=== PATIENT | female | born 1970 | race Caucasian/White ===

== ENCOUNTER 2016-04-10 13:58 | Emergency (ER) | payer SELFPAY ==
[2016-04-10 13:58] VITALS: BMI 21.8
[2016-04-10 14:13] VITALS: TEMP 98.2
[2016-04-10 14:30] LABS: AUTOMATED BASOPHIL 0.8 % (0-2); AUTOMATED EOSINOPHIL 10.8 % (0-5); AUTOMATED LYMPH 34.6 % (17-44); AUTOMATED MONOCYTE 6.8 % (3-10); MPV 7.6 fL (7.4-10.4)
[2016-04-10 14:42] LABS: LEUKOCYTES/URINE NEG (NEGATIVE); NITRITE/URINE NEG (NEGATIVE); URINE OCCULT BLOOD NEG (NEG/TRACE)
[2016-04-10 14:43] LABS: RBC/URINE 0-2 (0-5)
[2016-04-10 14:43] LABS: BLOOD UREA NITROGEN 10 MG/DL (7-17); CALCIUM 9.4 MG/DL (8.4-10.2); CALCULATED OSMOLALITY 269 MOs/Kg (270-290); CHLORIDE 103 mEq/L (98-107); GLUCOSE 78 MG/DL (70-99); SODIUM LEVEL 141 mEq/L (137-146); TOTAL PROTEIN 7.8 G/DL (6.3-8.2)
[2016-04-10] MEDS ORDERED: NS 1,000 ML IV ONE ×3 (15:11→17:30)
[2016-04-10] MEDS ORDERED: ONDANSETRON HCL 4 MG/2 ML VIAL IV ONE (15:11)
[2016-04-10] MEDS ORDERED: HYDROmorphone 1 MG INJECTION IV ONE ×2 (15:11→17:29)
--- NOTE | 2016-04-10 15:19 | EDPRACDOC ---
- General Information Chief Complaint: Abdominal Pain Stated Complaint: RT FLANK PAIN Time Seen by Provider: 04/10/16 14:44 Information Source: Patient Mode Of Arrival: Car Home Medications: Home Medications Ondansetron [Zofran Odt] 4 mg PO Q6H #20 tab.rapdis 04/10/16 Oxycodone Immediate Release [Oxycodone Immediate Release (OxyIR)] 5 mg PO Q4H PRN #15 tab 04/10/16 Allergies/Adverse Reactions: Allergies Allergy/AdvReac Type Severity Reaction Status Date / Time No Known Allergies Allergy Verified 04/10/16 14:13 - History of Present Illness Onset: SEVERAL MONTHS HPI: PT C/O RIGHT UPPER QUADRANT PAIN RIGHT FLANK PAIN OVER THE LAST FEW MONTHS THAT HAS GOTTEN SIGNIFICANTLY WORSE OVER THE LAST SEVERAL DAYS AND NOW HAVING N/V. NO DIARRHEA ALLEVIATING OR AGGRAVATING FACTORS AT THIS TIME. Pain Location: Reports: Epigastric, RUQ, Flank (RT) Pain Context: Reports: Spontaneous Pain Severity: Moderate Pain Quality: Reports: Aching, Sharp Pain Radiation: Reports: Shoulder (RT), Back (RT) Last Menstrual Period: 04/04/16 : No Blood Type: Unknown Modifying Factors: improves with: Nothing Female Associated Signs & Symptoms: Reports: Nausea, Vomiting Oral Intake: Decreased Urinary Output: Normal - Treatment Prior to ED Arrival Reported Medications/Treatment [employer] Treated With Medication [employer] YES Medications [employer]ENT[employer] (Medication/ HYRDOCODONE [id number] Dose/Time) ED Past Medical History - History Reviewed Yes Nurses notes reviewed and agree except as marked Travel Outside of [place] in the Last 3 Months?: No - Patient Medical History Neurological History: Reports: Migraine Psychological History: Denies: Depression Systemic History: Denies: Cancer Surgical History: Denies: Hysterectomy - Family Medical History Reports: Stroke (MOTHER IN 40'S) - Social Medical History Smoking Status: Heavy tobacco smoker (5 or more cigarettes/day or daily pipe/ cigar) ETOH: None Substance Abuse: None Lives With: Other Lives In: Home EDM Review of Systems - Review of Systems ROS Negative Except as Marked: Yes All systems reviewed and were negative except as marked Constitutional: No Symptoms Reported. negative: Fever, Chills, Weakness, Fatigue, Loss of Appetite Eyes: No Symptoms Reported. negative: Redness, Blurred Vision, Double Vision, Discharge, Pain, Light Sensitive, Photophobia Ears: No Symptoms Reported. negative: Pain, Hearing Loss, Drainage, Ear Pulling Throat: No Symptoms Reported. negative: Pain, Swelling Nose: No Symptoms Reported. negative: Congestion, Bleeding, Discharge, Injection, Swelling, Deformity, Ecchymosis, Tender, Abrasion, Laceration Mouth: No Symptoms Reported. negative: Pain, Drooling Respiratory: No Symptoms Reported. negative: Cough, Brassy Cough, Barky Cough, Shortness of Breath, Wheezing, Hemoptysis Cardiovascular: No Symptoms Reported. negative: Chest Pain, Palpitations, Syncope, Edema, Orthopnea, PND, Skin Mottling, Cyanosis Gastrointestinal: Nausea, Pain, Vomiting. negative: Constipation, Diarrhea, Formula Intolerance, Melena Genitourinary: No Symptoms Reported. negative: Dysuria, Hematuria, Frequency, Discharge, Bleeding, Testicular Pain, Neurological: No Symptoms Reported. negative: Headache, Dizziness, Seizure, Numbness, Weakness, Speech Difficulty, Gait Difficulty Musculoskeletal: No Symptoms Reported. negative: Neck, Chestwall, Ribs, Back, Shoulder, Arm, Elbow, Forearm, Wrist, Hand, Pelvis, Hip, Femur, Knee, Leg, Ankle , Foot Integumentary: No Symptoms Reported. negative: Itching, Rash, Bruising, Wound Allergic/Immunologic: No Symptoms Reported. negative: Hives, Itching Hematologic: No Symptoms Reported. negative: Lymphadenopathy, Easy Bruising, Easy Bleeding Endocrine: No Symptoms Reported. negative: Weight Gain, Weight Loss Psychiatric: No Symptoms Reported. negative: Anxiety, Depression, Hallucinations, Insomnia, Suicidal - Physical Exam Constitutional: Alert (Awake), No apparent distress Oriented to: Time, Person, Place Last recorded Vital Signs: Last Vital Signs Temp 98.2 F 04/10/16 14:10 Pulse 54 L 04/10/16 17:56 Resp 18 04/10/16 17:56 BP 113/73 04/10/16 17:56 Pulse Ox 96 04/10/16 17:56 Oxygen Pulse Oxygen Saturation 96 O2 Device Room Air Oxygen Flow Rate Fraction of Inspired Oxygen ( FIO2) - HEENT Head: Normal ( normocephalic) Eye Exam: Normal (PERRL, EOMI, Sclera white) Oropharynx: Normal (Pharynx:Moist without exudate,Gums-no swelling) Tympanic Membrane: Normal ENT EAC: Normal TMJ: Normal Nose: No Symptoms Reported (septum midline) Neck: Normal (FROM, trachea at midline) - Respiratory/Cardiovascular Respiratory: Normal - CTA (BBS clear to auscultation without adventitious sounds ) Cardiovascular: Normal (RRR without murmur, gallop or rub) - GI Auscultation: Normal (NABS) Palpation: Normal (Soft,No rebound or guarding, non distended) Tenderness: Mild, Moderate, RUQ, Epigastric Camacho's Sign: Negative - Bladder: Normal - Musculoskeletal Back: Normal (Non-Tender) Extremities: Normal (Normal tone, Pulses 2+ No cyanosis or edema, FROM) - Integumentary Skin: Normal, Warm, Dry Lymphatics: Normal (no adenopathy) - Neurologic Memory Impaired: Normal Motor Function: Normal (Normal tone, Pulses 2+ No cyanosis or edema, FROM) Cranial Nerve: Normal (CN II-X11 intact sensation, strength 5/5) Cerebellar: Normal Mood Description: Normal Perception: Normal - Differential Diagnosis Cholecystitis, Cholelithiasis, Colic, Constipation, Diverticulitis, Pancreatitis , PUD, Urolithiasis, UTI - Results 04/10/16 14:15 04/10/16 14:15 WBC 8.7 xk/uL (3.8-10.8) 04/10/16 14:15 RBC 4.13 xM/uL (4.20-5.40) L 04/10/16 14:15 Hgb 12.5 g/dL (12.0-16.0) 04/10/16 14:15 Hct 36.9 % (36-47) 04/10/16 14:15 MCV 89 fL (81-99) 04/10/16 14:15 MCH 30.2 pg (27-32) 04/10/16 14:15 MCHC 33.8 g/dl (33-36) 04/10/16 14:15 RDW 14.6 % (11.5-14.5) H 04/10/16 14:15 Plt Count 283 xk/uL (130-400) 04/10/16 14:15 MPV 7.6 fL (7.4-10.4) 04/10/16 14:15 Neut % (Auto) 47.0 % (45-76) 04/10/16 14:15 Lymph % (Auto) 34.6 % (17-44) 04/10/16 14:15 Moore % (Auto) 6.8 % (3-10) 04/10/16 14:15 Eos % (Auto) 10.8 % (0-5) H 04/10/16 14:15 Baso % (Auto) 0.8 % (0-2) 04/10/16 14:15 Absolute Neuts (auto) 4.09 xk/uL (1.7-8.2) 04/10/16 14:15 Absolute Lymphs (auto) 2.96 xk/uL (0.65-4.75) 04/10/16 14:15 Sodium 141 mEq/L (137-146) 04/10/16 14:15 Potassium 4.4 mEq/L (3.5-5.1) 04/10/16 14:15 Chloride 103 mEq/L (98-107) 04/10/16 14:15 Carbon Dioxide 27 mMOL/L (22-33) 04/10/16 14:15 Anion Gap 15 mEq/L (8-16) 04/10/16 14:15 BUN 10 MG/DL (7-17) 04/10/16 14:15 Creatinine 0.80 MG/DL (0.52-1.04) 04/10/16 14:15 Estimated GFR (MDRD) > 60 mL/min (>=60) 04/10/16 14:15 Glucose 78 MG/DL (70-99) 04/10/16 14:15 Calculated Osmolality 269 MOs/Kg (270-290) L 04/10/16 14:15 Calcium 9.4 MG/DL (8.4-10.2) 04/10/16 14:15 Total Bilirubin 0.4 MG/DL (0.2-1.3) 04/10/16 14:15 AST 26 IU/L (14-36) 04/10/16 14:15 ALT 36 IU/L (9-52) 04/10/16 14:15 Alkaline Phosphatase 57 IU/L (38-126) 04/10/16 14:15 Total Protein 7.8 G/DL (6.3-8.2) 04/10/16 14:15 Albumin 4.4 G/DL (3.5-5.0) 04/10/16 14:15 Lipase 165 U/L (23-300) 04/10/16 14:25 Urine Color Yellow 04/10/16 14:18 Urine Clarity Clear 04/10/16 14:18 Urine pH 6.0 (5.0-8.0) 04/10/16 14:18 Ur Specific [place] 1.010 04/10/16 14:18 Urine Protein Neg (NEG/TRACE) 04/10/16 14:18 Urine Glucose (UA) Neg (NEGATIVE) 04/10/16 14:18 Urine Ketones Neg (NEGATIVE) 04/10/16 14:18 Urine Occult Blood Neg (NEG/TRACE) 04/10/16 14:18 Urine Nitrite Neg (NEGATIVE) 04/10/16 14:18 Urine Bilirubin Neg (NEGATIVE) 04/10/16 14:18 Urine Urobilinogen 0.2 MG/DL (0-1) 04/10/16 14:18 Ur Leukocyte Esterase Neg (NEGATIVE) 04/10/16 14:18 Urine RBC 0-2 (0-5) 04/10/16 14:18 Urine WBC 2-5 (0-5) 04/10/16 14:18 Ur Epithelial Cells Occ 04/10/16 14:18 Urine Bacteria Few (NEG/FEW) 04/10/16 14:18 Urine Mucus Sm amt (NEG/OCC) 04/10/16 14:18 Urine Test Neg (NEGATIVE) 04/10/16 14:18 Lab Results 04/10/16 04/10/16 04/10/16 14:25 14:18 14:18 WBC RBC Hgb Hct MCV MCH MCHC RDW Plt Count MPV Neut % (Auto) Lymph % (Auto) Moore % (Auto) Eos % (Auto) Baso % (Auto) Absolute Neuts (auto) Absolute Lymphs (auto) Sodium Potassium Chloride Carbon Dioxide Anion Gap BUN Creatinine Estimated GFR (MDRD) Glucose Calculated Osmolality Calcium Total Bilirubin AST ALT Alkaline Phosphatase Total Protein Albumin Lipase 165 Urine Color Yellow Urine Clarity Clear Urine pH 6.0 Ur Specific [place] 1.010 Urine Protein Neg Urine Glucose (UA) Neg Urine Ketones Neg Urine Occult Blood Neg Urine Nitrite Neg Urine Bilirubin Neg Urine Urobilinogen 0.2 Ur Leukocyte Esterase Neg Urine RBC 0-2 Urine WBC 2-5 Ur Epithelial Cells Occ Urine Bacteria Few Urine Mucus Sm amt Urine Test Neg 04/10/16 04/10/16 14:15 14:15 WBC 8.7 RBC 4.13 L Hgb 12.5 Hct 36.9 MCV 89 MCH 30.2 MCHC 33.8 RDW 14.6 H Plt Count 283 MPV 7.6 Neut % (Auto) 47.0 Lymph % (Auto) 34.6 Moore % (Auto) 6.8 Eos % (Auto) 10.8 H Baso % (Auto) 0.8 Absolute Neuts (auto) 4.09 Absolute Lymphs (auto) 2.96 Sodium 141 Potassium 4.4 Chloride 103 Carbon Dioxide 27 Anion Gap 15 BUN 10 Creatinine 0.80 Estimated GFR (MDRD) > 60 Glucose 78 Calculated Osmolality 269 L Calcium 9.4 Total Bilirubin 0.4 AST 26 ALT 36 Alkaline Phosphatase 57 Total Protein 7.8 Albumin 4.4 Lipase Urine Color Urine Clarity Urine pH Ur Specific [place] Urine Protein Urine Glucose (UA) Urine Ketones Urine Occult Blood Urine Nitrite Urine Bilirubin Urine Urobilinogen Ur Leukocyte Esterase Urine RBC Urine WBC Ur Epithelial Cells Urine Bacteria Urine Mucus Urine Test - Diagnostic Imaging GBUS Image interpreted by: Radiologist 04/10/16 16:54 IMPRESSION: Normal right upper quadrant ultrasound. CT ABD/PEL Image interpreted by: Radiologist 04/10/16 18:08 IMPRESSION: 1. No acute findings within the abdomen or pelvis. 2. Aortic atherosclerosis noted. Decision Time to Discharge: 18:09 - Departure Disposition: Home Condition: Stable Final Diagnosis: Biliary colic Instructions: Acute Abdominal Pain (ED), Non-pharmacological Pain Management Therapies for Adults (GEN), Abdominal Pain (ED), Biliary Colic (ED) Education/Counseling Given To: Patient Education/Counseling Given Regarding: Diagnosis, Treatment, Prognosis, Follow Up Referrals: None,No Provider [Primary Care Provider] - One Week Yousuf Vences MD [Staff Physician] - One Week Prescriptions: New Ondansetron [Zofran Odt] 4 mg PO Q6H #20 tab.rapdis Oxycodone Immediate Release [Oxycodone Immediate Release (OxyIR)] 5 mg PO Q4H PRN #15 tab PRN Reason: Pain Additional Instructions: RECOMMEND HIDA SCAN TO EVALUATE THE FUNCTION OF YOUR GALLBLADDER. RETURN FOR WORSE OR DIFFERENT SYMPTOMS.
--- NOTE | 2016-04-10 16:47 | DIRPT ---
CLINICAL DATA: Right flank pain with radiation to back for the last 2 weeks. EXAM: US ABDOMEN LIMITED - RIGHT UPPER QUADRANT COMPARISON: CT of 10/23/2011, report not available. FINDINGS: Gallbladder: No gallstones or wall thickening visualized. No sonographic Caamcho sign noted by call or contact centre manager. Common bile duct: Diameter: Normal, 4 mm. Liver: No focal lesion identified. Within normal limits in parenchymal echogenicity. IMPRESSION: Normal right upper quadrant ultrasound. Electronically Signed By: Yossi Aviles M.D. On: 04/10/2016 16:45
[2016-04-10] MEDS ORDERED: Pharmacy Review for Metformin - IV Contrast Given SCH (17:00)
--- NOTE | 2016-04-10 17:51 | DIRPT ---
CLINICAL DATA: Right-sided abdominal pain, nausea and vomiting. EXAM: CT ABDOMEN AND PELVIS WITH CONTRAST TECHNIQUE: Multidetector CT imaging of the abdomen and pelvis was performed using the standard protocol following bolus administration of intravenous contrast. CONTRAST: 100 cc of Isovue 370 COMPARISON: 10/23/2011 FINDINGS: Lower chest: No pleural fluid. The lung bases are clear. Hepatobiliary: Low density structure within the anterior right hepatic lobe measures 4 mm. This is too small to characterize. The gallbladder is normal. No biliary dilatation. Pancreas: Normal appearance of the pancreas. Spleen: Negative Adrenals/Urinary Tract: The adrenal glands are normal. Unremarkable appearance of both kidneys. The urinary bladder appears within normal limits. Stomach/Bowel: The stomach is within normal limits. The small bowel loops have a normal course and caliber. No obstruction. Normal appearance of the colon. The appendix is visualized and is normal. Vascular/Lymphatic: Calcified atherosclerotic disease involves the abdominal aorta. No aneurysm. No enlarged retroperitoneal or mesenteric adenopathy. No enlarged pelvic or inguinal lymph nodes. Reproductive: The uterus appears normal. Status post bilateral tubal ligation. Other: There is no ascites or focal fluid collections within the abdomen or pelvis. Musculoskeletal: No aggressive lytic or sclerotic bone lesion identified. IMPRESSION: 1. No acute findings within the abdomen or pelvis. 2. Aortic atherosclerosis noted. Electronically Signed By: Mónica Eldridge M.D. On: 04/10/2016 17:48
[2016-04-10 19:01] VITALS: BP 117/70; PULSE 58
== END 2016-04-10 18:00 | disposition home or self-care (01) ==
LOC: ED 13:58
DX: K80.50 Calculus of bile duct without cholangitis or cholecystitis without obstruction (principal)
CPT/HCPCS: 36415; 74177; 76705; 80053; 81001; 81025; 83690; 85025; 96361; 96374; 96375; 96376; 99284; A9698; J1170; J2405